=== PATIENT | female | born 1965 | race Asian ===

== ENCOUNTER 2017-01-27 01:51 | Inpatient (IN) | payer OTHER ==
[~2017-01-27] VITALS: Ht 152.4 cm; Wt 58.5 kg
[2017-01-27] VITALS (7 sets, daily range): BP systolic 102–120; BP diastolic 60–72
[~2017-01-27 01:51] MED LIST: LISINOPRIL5 M1 PO; VENTOLIN HFA18 GM INH
--- NOTE | 2017-01-27 10:50 | Operative Report ---
Operative/Inv Procedure Report Surgery Date: 01/27/17 Name of Procedure: Total abdominal hysterectomy bilateral salpingo-oophorectomy vaginal vault suspension Pre-Operative Diagnosis: Uterine prolapse Post-Operative Diagnosis: Same Estimated Blood Loss: 500 Surgeon/Bacteriologist Fishery: VIRGILIO BUTTERFIELD,MIKE Fowler and Dr. Cuong Del Real Anesthesia: general endotracheal tube, block Operative/Procedure Note Note: Seasonal patient was taken the operating room placed prone position after adequate induction general anesthesia via endotracheal tube patient placed in dorsolithotomy position the vagina prepped draped fashion bladder was catheterized examination under anesthesia performed at this point cystoscopy was performed and Dr. Valle placed stents patient tolerated that well on patient was returned spine position the abdomen was prepped and draped so fashion bladder was catheterized I drained clear urine through Pfannenstiel skin incision 2 fingerbreadths of symptoms pubis skin was cut was carried down to rectus fascia which was cut in curvilinear fashion I direction using curved males peritoneal cavity was entered high into the abdomen at this point dissected bluntly patient was placed in Trendelenburg with lap pads and the Meade O'Pedro in usual fashion at this point the round ligament on the right was identified to ligated using 0 the round ligament left was identified suture- ligated 0 the bladder flap was developed sharply sequentially cervical branches uterine artery were clamped and cut to level of the external os the specimen was removed using a Bovie the cuff was oversewn running locking sutures care was taken to incorporate distended uterosacrals hemostasis was apparent the right ovary was picked up clamped 2 cut oversewn 2 using 0 and removed left ovary and tube were clamped times to cut and removed suture-ligated 0 the stitch for the uterosacrals remained in place all lap pads were removed Jenna was applied to the cervical cuff after the abdomen been irrigated copious amounts warm saline until clear at this point the stitch was attached to the fascia and the para Bradford muscle for support each was apparent the cuff was suspended on peritoneum was reapproximated using 0 the fascia was reapproximated to continue sutures #1 skin was reapproximated moisés at the end the case the vagina was irrigated found to be hemostatic and there was no cystocele on patient did well she was awakened from anesthesia extubated transferred recovery room awake alert counts correct Findings: Normal tubes and ovaries bilaterally otherwise normal anatomy
--- NOTE | 2017-01-27 15:09 | NUR ---
PT ARRIVED TO FLOOR AT 1440 VIA STRETHCER. FRIEND WITH FRIENDS CHILDREN AT BEDSIDE. PT STATES PAIN IS 8/10. RELOCATION COORDINATOR EDUCATION GIVEN. ADDITIONAL TORDOL GIVEN FOR PAIN. ABBDOMINAL DRSNG C/D/I. ABDOMINAL BINDER ON. SKIN C/D/I. IV FLUIDS RUNNING. ALPS ON. CALL SAMPSON WITHIN REACH.
[2017-01-27 16:48] LABS: ABSOLUTE BASOPHIL COUNT 0 /CUMM (0.0-0.2); ABSOLUTE EOSINOPHIL COUNT 0 /CUMM (0.0-0.7); ABSOLUTE GRANULOCYTE CT 7.9 /CUMM (1.4-6.5); ABSOLUTE LYMPH COUNT 0.8 /CUMM (1.2-3.4); ABSOLUTE MONOCYTE COUNT 0.1 /CUMM (0.10-0.60); BASOPHIL % 0.1 % (0.0-2.0); EOSINOPHIL % 0 % (0-5); HEMATOCRIT 40.4 % (37-47); MEAN CORPUSCULAR HGB 29.2 PG (27.0-31.0); MEAN CORPUSCULAR HGB CONC 33.6 G/DL (33.0-37.0); MEAN CORPUSCULAR VOLUME 86.8 FL (81.0-99.0); MEAN PLATELET VOLUME 9.1 FL (7.4-10.4); PLATELET COUNT 195 /CUMM (130-400); RBC DISTRIBUTION WIDTH 12.5 % (11.5-14.5); RED BLOOD CELL CT 4.66 /CUMM (4.20-5.40); WHITE BLOOD CELL COUNT 8.8 /CUMM (4.8-10.8)
[2017-01-27 16:55] LABS: GRANULOCYTE % 89.4 % (42.2-75.2)
[2017-01-28] VITALS (10 sets, daily range): BP systolic 90–120; BP diastolic 58–76
[2017-01-28 09:10] LABS: ABSOLUTE BASOPHIL COUNT 0 /CUMM (0.0-0.2); ABSOLUTE EOSINOPHIL COUNT 0 /CUMM (0.0-0.7); ABSOLUTE GRANULOCYTE CT 7.4 /CUMM (1.4-6.5); ABSOLUTE LYMPH COUNT 1.6 /CUMM (1.2-3.4); ABSOLUTE MONOCYTE COUNT 0.7 /CUMM (0.10-0.60); BASOPHIL % 0.2 % (0.0-2.0); EOSINOPHIL % 0 % (0-5); GRANULOCYTE % 76.3 % (42.2-75.2); HEMATOCRIT 36.8 % (37-47); MEAN CORPUSCULAR HGB CONC 33.3 G/DL (33.0-37.0); MEAN CORPUSCULAR VOLUME 87.2 FL (81.0-99.0); MEAN PLATELET VOLUME 9.3 FL (7.4-10.4); PLATELET COUNT 173 /CUMM (130-400); RED BLOOD CELL CT 4.23 /CUMM (4.20-5.40); WHITE BLOOD CELL COUNT 9.7 /CUMM (4.8-10.8)
--- NOTE | 2017-01-28 11:54 | NUR ---
RAYMOND DC'D AT 1040. FORM DESIGNER DC'D AT 1040. PT STARTED ON A REGULAR DIET HOWEVER EXPLAINED TO PT TO START SLOWLY WITH DIET. PT TORATED SOUP AND COFFEE WELL. PT RESTING COMFORTABLY IN BED.
[2017-01-29 07:22] VITALS: BP 100/60
[2017-01-29] MEDS ORDERED: IBUPROFEN800 M1 PO (11:19)
[2017-01-29] MEDS ORDERED: PERCOCET 5-3251 EACH PO (11:19)
== END 2017-01-29 13:02 | DRG 743 ==
LOC: SDA 01:51 → ENRESERV 12:47 → ENTRNSPT 14:16 → EDTRNSPT 14:20 → EDTRNSPTSTS 14:27 → EDTRNSPT 14:27 → 2NA 14:37 → CMPTRNSPT 14:50 → ENPENDDIS 01-29 11:22 → 2NA 01-29 13:02
PROVIDERS: ADMIT Specialist
PROC: 0UT90ZZ Resection of Uterus, Open Approach (ICD-10-PCS; principal; 2017-01-27)
PROC: 0UTC0ZZ Resection of Cervix, Open Approach (ICD-10-PCS; 2017-01-27)
PROC: 0UT70ZZ Resection of Bilateral Fallopian Tubes, Open Approach (ICD-10-PCS; 2017-01-27)
PROC: 0UT20ZZ Resection of Bilateral Ovaries, Open Approach (ICD-10-PCS; 2017-01-27)
PROC: 0USG0ZZ Reposition Vagina, Open Approach (ICD-10-PCS; 2017-01-27)
DX: N81.4 Uterovaginal prolapse, unspecified (principal); I10 Essential (primary) hypertension; J45.909 Unspecified asthma, uncomplicated
CPT/HCPCS: 2NAP; 36415; 81025; 87086; 88309; C9399; J0131; J0694; J1170; J1650; J1885